=== PATIENT | female | born 1940 | race Caucasian/White ===

== ENCOUNTER 2016-09-05 10:29 | Outpatient (CLI) | payer MEDICARE, OTHER ==
--- NOTE | 2016-09-05 11:30 | XRAY Report ---
LEFT HIP AND PELVIS: 09/05/2016 CLINICAL INDICATION: Pain. FINDINGS: Frontal view of the hips and pelvis and frogleg lateral view of the left hip demonstrate m ild osteoarthritis. There is no evidence of acute fracture. No radiopaque foreign body is seen in the soft tissues. IMPRESSION: MILD OSTEOARTHRITIS. JOB #: [id number] EXT JOB #:[id number]
== END 2016-09-05 10:30 | disposition home or self-care (01) ==
LOC: DI 10:29
PROVIDERS: ATTEND Internal Medicine
DX: M16.12 Unilateral primary osteoarthritis, left hip (principal)

== ENCOUNTER 2016-09-16 16:14 | Outpatient (CLI) | payer MEDICARE, OTHER ==
--- NOTE | 2016-09-16 16:57 | XRAY Preliminary Report ---
Exam: XR Pelvis 1 View IMPRESSION: Normal pelvis radiography. [facility] The call report notification system was initiated by Dr. Trell Gross at 16:47 hrs on 09/16/16. The above findings were discussed with provider Dr. Nahid Lemus by Dr. Trell Gross at 16:55 hrs on . SITE ID: [id number]
--- NOTE | 2016-09-16 17:33 | XRAY Report ---
EXAM: PELVIS RADIOGRAPHY EXAM DATE: 09/16/2016 04:33 PM. CLINICAL HISTORY: Coccyx pain. COMPARISON: None. TECHNIQUE: 1 view. FINDINGS: Bones: Normal. No fracture or bone lesion. Joints: The visualized hip, pubis symphysis, and sacroiliac joints are preserved. No subluxation. Soft Tissues: Normal. No soft tissue swelling. IMPRESSION: Normal pelvis radiography. [facility] The call report notification system was initiated by Dr. Trell Gross at 16:47 hrs on 09/16/16. The above findings were discussed with providerDr. Nahid Lemus by Dr. Trell Gross at 16:55 hrs on 08/23 09/07. Referring Provider Line: [phone] SITE ID: [id number]
== END 2016-09-16 16:15 | disposition home or self-care (01) ==
LOC: DI 16:14
PROVIDERS: ATTEND Internal Medicine
DX: M53.3 Sacrococcygeal disorders, not elsewhere classified (principal)
CPT/HCPCS: 72170

== ENCOUNTER 2016-09-26 09:26 | Outpatient (CLI) | payer MEDICARE, OTHER ==
--- NOTE | 2016-09-26 16:08 | MRI Report ---
MR LUMBAR SPINE WITHOUT CONTRAST CLINICAL HISTORY: 75-year-old female with left-sided sciatica. TECHNIQUE: 1. Sagittal STIR, T1 and T2. 2. Axial T1 and T2. COMPARISON: None. FINDINGS: Radiographs (12/06/2013 have been reviewed). This patient has 6 [id number]-[id number], lumbar-type vertebra e. The last fully articulated level has been labeled L6. There is at least mild accentuation of the normal lumbar lordosis. There is minor retrolisthesis of L 4 on L5. Alignment is otherwise unremarkable. There is abnormal, T1 hypointense and STIR hyperintense marrow signal in the sacral ala at S1 and S2 bilaterally, suggesting probable insufficiency fractures. In addition, there appears to be a horizont al, side bar fracture (as evidenced by marrow edema) through upper S2 vertebral body. There are numer ous T1/T2 hyperintense foci, scattered throughout the vertebral bodies, pedicles and posterior elemen ts in the lumbar spine, consistent with inhomogeneous fatty marrow replacement and/or multiple intrao sseous hemangiomata. The marrow signal intensity in the lumbar spine is otherwise unremarkable. The conus terminates in an appropriate fashion above the L1-L2 disk level. There is no abnormal thick ening or lipomatous change of the filum. Axial images: L2-L3: No disk herniation. No spinal stenosis. Mild right foraminal narrowing. L3-L4: Minimal intraforaminal disk displacement bilaterally. No spinal stenosis. Minimal foraminal na rrowing. L4-L5: Circumferential disk bulge with associated, intraforaminal disk displacement bilaterally. A sm all fissure is identified in the annulus posterolaterally on the right without associated protrusion or extrusion. Degenerative facet arthrosis with minimal bony hypertrophy. Moderate redundancy of liga menta flava. Circumferential mass effect on the thecal sac. There is moderate right subarticular zone stenosis. No impingement of traversing right L5 nerve root is demonstrated. No significant central z one or left subarticular zone narrowing. Minimal foraminal narrowing. L5-L6: Minimal disk bulge. Minor intraforaminal protrusion on the left. A fissure is identified in th e annulus posterolaterally on the right without associated protrusion or extrusion. Degenerative face t arthrosis with mild bony hypertrophy. Mild to moderate redundancy of ligamenta flava. No significan t central or subarticular zone spinal stenosis. Mild foraminal narrowing. L6-S1: No disk herniation. Degenerative facet arthrosis with mild to moderate bony hypertrophy. No sp inal canal or foraminal stenosis. There is fairly advanced fatty atrophy in the posterior paraspinal musculature. IMPRESSION: 1. Marrow edema in the S1 and S2 sacral ala and in upper S2 vertebral body as described. These findin gs are strongly suggestive of sacral insufficiency fractures. This certainly would represent a cause for sacral pain. 2. Of note, this patient has 6 osl-[id number]-[id number], lumbar-type vertebrae. 3. Degenerative disk and facet changes are seen in the lumbar spine as documented above. No significa nt-appearing spinal canal or foraminal stenosis. No evidence of neural impingement. Comment: No potential etiology for left-sided sciatica has been demonstrated. Referring Provider Line: [phone] SITE ID: [id number]
== END 2016-09-26 09:27 | disposition home or self-care (01) ==
LOC: DI 09:26
PROVIDERS: ATTEND Internal Medicine
DX: M51.26 Other intervertebral disc displacement, lumbar region (principal); M51.36 Other intervertebral disc degeneration, lumbar region; M47.896 Other spondylosis, lumbar region
CPT/HCPCS: 72148

== ENCOUNTER 2017-02-27 14:48 | Outpatient (CLI) | payer MEDICARE, OTHER ==
[2017-02-27 13:52] LABS: BASOPHILS % (AUTO) 0.6 %; EOSINOPHILS # (AUTO) 0.1 10^3/uL (0.0-0.7); EOSINOPHILS % (AUTO) 3.1 %; HCT - HEMATOCRIT 35.1 % (37.0-47.0); HGB - HEMOGLOBIN 11.7 g/dL (12.0-16.0); MEAN CORPUSCULAR HEMOGLOBIN 29.3 pg (27.0-31.0); MEAN CORPUSCULAR HGB CONC 33.2 g/dL (32.0-36.0); MEAN CORPUSCULAR VOLUME 88.1 fL (81.0-99.0); MEAN PLATELET VOLUME 8.6 fL (7.9-10.8); MONOCYTES # (AUTO) 0.5 10^3/uL (0.0-1.0); MONOCYTES % (AUTO) 13.3 %; NEUTROPHILS # (AUTO) 2.3 10^3/uL (1.5-6.6); RED BLOOD COUNT 3.99 10^6/uL (4.20-5.40); RED CELL DISTRIBUTION WIDTH 14.1 % (12.0-15.0)
[2017-02-27 14:07] LABS: ALBUMIN/GLOBULIN RATIO 1.8 (1.0-2.2); BILIRUBIN,TOTAL 0.4 mg/dL (0.2-1.0); BUN - BLOOD UREA NITROGEN 16 mg/dL (6-20); CALCIUM 9.2 mg/dL (8.5-10.3); CARBON DIOXIDE - CO2 27 mmol/L (21-32); CHLORIDE 104 mmol/L (101-111); CHOL/HDL RATIO 2.5 (<4.4); CHOLESTEROL 252 mg/dL; CREATININE 0.9 mg/dL (0.4-1.0); GFR - MDRD 61 (>89); GLUCOSE 91 mg/dL (70-100); HDL CHOLESTEROL 101 mg/dL; LDL/HDL RATIO 1.4 (<4.4); POTASSIUM 3.8 mmol/L (3.5-5.0); SODIUM 138 mmol/L (135-145); TOTAL PROTEIN 6.7 g/dL (6.7-8.2); TRIGLYCERIDES 55 mg/dL; VLDL CHOLESTEROL 11 mg/dL
[2017-03-01 03:03] LABS: TEST RESULT REPORT
== END 2017-02-27 14:49 | disposition home or self-care (01) ==
LOC: LAB.N 14:48
PROVIDERS: ATTEND Internal Medicine
DX: G62.9 Polyneuropathy, unspecified (principal); E21.3 Hyperparathyroidism, unspecified; C18.9 Malignant neoplasm of colon, unspecified; G40.909 Epilepsy, unspecified, not intractable, without status epilepticus; Z79.899 Other long term (current) drug therapy
CPT/HCPCS: 36415; 80053; 80061; 80175; 80184; 81599; 85025

== ENCOUNTER 2017-03-20 16:25 | Outpatient (CLI) | payer MEDICARE, OTHER ==
--- NOTE | 2017-03-25 09:29 | XRAY Report ---
DATE OF SERVICE: 03/20/2017 SACRUM AND COCCYX: 03/20/2017 CLINICAL INDICATION: Left-sided pain. FINDINGS: AP, oblique, lateral views of the sacrum and coccyx demonstrate no evidence of acute fract ure. The insufficiency fractures seen on MRI of 09/26/2016 are not well appreciated on plain film. No radiopa que foreign body is seen in the soft tissues. IMPRESSION: No evidence of acute fracture. TD: 03/21/2017 19:05
--- NOTE | 2017-03-25 09:49 | XRAY Report ---
DATE OF SERVICE: 03/20/2017 SACROILIAC JOINTS: 03/20/2017 CLINICAL INDICATION: Left-sided pain. FINDINGS: Frontal and bilateral oblique views of the sacroiliac joints demonstrate no evidence of er osion or effusion. The joint spaces appear unremarkable. No radiopaque foreign body is seen in the soft tiss ues. IMPRESSION: Normal sacroiliac joints. TD: 03/21/2017 19:06
== END 2017-03-20 16:26 | disposition home or self-care (01) ==
LOC: DI 16:25
PROVIDERS: ATTEND Physician Assistant Medical
DX: M53.3 Sacrococcygeal disorders, not elsewhere classified (principal)
CPT/HCPCS: 72202; 72220

== ENCOUNTER 2017-03-29 07:35 | Emergency (ER) | payer MEDICARE, OTHER ==
--- NOTE | 2017-03-29 09:14 | ED Physician Documentation ---
PD HPI LOWER EXT INJURY - Stated complaint Stated Complaint: GLF/LT SIDE PX - Chief complaint Chief Complaint: Ext Problem - History obtained from History obtained from: Patient - History of Present Illness PD HPI LOW EXT INJURY LOCATION: Left, Hip, Foot Type of injury: Fall Where injury occurred: Home Timing - onset: Enter time (1800), Last night Timing - duration: Hours Timing - details: Abrupt onset, Still present Improved by: Rest, Immobilization Worsened by: Moving, Palpating Associated symptoms: No: Weakness, Numbness, Tingling, Swelling Contributing factors: No: Anticoagulated Similar symptoms before: Diagnosis (sacral fracture) Recently seen: Not recently seen - Additional information Additional information: 76-year-old female with history of peripheral neuropathy and seizure disorder wears braces to her lower extremities and has a left ankle and foot that does not work well. Yesterday evening at 6:00 the patient fell in her home when she was going to get out of the door. She was using her walker she had her braces on and despite this she fell and she has an injury to her left low back and to her left lateral foot. Review of Systems Constitutional: denies: Fever Eyes: denies: Decreased vision Ears: denies: Ear pain Nose: denies: Congestion Throat: denies: Sore throat Cardiac: denies: Chest pain / pressure, Palpitations Respiratory: denies: Dyspnea, Cough GI: denies: Abdominal Pain, Nausea, Vomiting, Constipation, Diarrhea : denies: Dysuria Skin: denies: Rash Musculoskeletal: reports: Back pain, Extremity pain, Pain with weight bearing. 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 - Present Medications Home Medications: Ambulatory Orders Medication Instructions Recorded Confirmed Ca Citrate/Mgox/Vit D3/B6/Min 500 each PO BID 05/04/13 07/14/15 [Calcium Citrate Plus Tablet] Cholecalciferol (Vitamin D3) 3,000 unit PO TID 05/04/13 07/14/15 [Vitamin D] Docusate Sodium 250 mg PO DAILY 05/04/13 07/14/15 PHENobarbital [Phenobarb] 32 mg PO TID 05/04/13 07/14/15 Lamotrigine [Lamotrigine ER] 150 mg PO BID 06/16/14 07/14/15 - Allergies Allergies/Adverse Reactions: Allergies Allergy/AdvReac Type Severity Reaction Status Date / Time No Known Drug Allergies Allergy Verified 03/29/17 07:41 - Social History Does the pt smoke?: No Smoking Status: Never smoker Does the pt drink ETOH?: No Does the pt have substance abuse?: No - Immunizations Immunizations are current?: Yes - POLST Patient has POLST: No PD ED PE NORMAL - Vitals Vital signs reviewed: Yes (normal ) - General General: Alert and oriented X 3, No acute distress, Well developed/nourished - HEENT HEENT: Atraumatic, PERRL - Respiratory Respiratory: No respiratory distress - Back Back: No CVA TTP, Other (There is specific tenderness to the lower back on the left side over the SI joint. There is no tenderness over the left trochanter. ) - Derm Derm: Normal color, Warm and dry, No rash - Extremities Extremities: No deformity, No edema, Other (There is specific pain over the proximal 5th metatarsal on the left. There is no deformitiy or crepitance. distal n/v is intact. 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, No motor deficit, No sensory deficit, Normal speech Eye Opening: Spontaneous Motor: Obeys Commands Verbal: Oriented GCS Score: 15 - Psych Psych: Normal mood, Normal affect Results - Vitals Vitals: Vital Signs - 24 hr 03/29/17 07:38 Temperature 36 C L Heart Rate 84 Respiratory 18 Rate Blood Pressure 129/77 O2 Saturation 94 Oxygen O2 Source Room air - Labs Labs: Laboratory Tests 03/29/17 09:54 Urine Color YELLOW Urine Clarity CLEAR Urine pH 7.5 Ur Specific [place] 1.015 Urine Protein NEGATIVE Urine Glucose (UA) NEGATIVE Urine Ketones NEGATIVE Urine Occult Blood NEGATIVE Urine Nitrite NEGATIVE Urine Bilirubin NEGATIVE Urine Urobilinogen 0.2 (NORMAL) Ur Leukocyte Esterase NEGATIVE Ur Microscopic Review NOT INDICATED Urine Culture Comments NOT INDICATED - Rads (name of study) LS-spine Radiology: Prelim report reviewed (Impression: 1. No acute osseous abnormality. 2. Multi-level lumbar degeneration.), EMP read indepedently, See rad report Left foot Radiology: Prelim report reviewed (Impression: 1. No acute osseous abnormality. ), EMP read indepedently, See rad report PD MEDICAL DECISION MAKING - ED course Complexity details: reviewed old records, reviewed results, re-evaluated patient , considered differential, d/w patient, d/w family ED course: 76-year-old female with a fall at home with an injury to her left lateral foot and her low back does not have evidence of fracture on x-ray. She is comfortable going home. Departure - Departure Disposition: 01 Home, Self Care Clinical Impression: Lumbar contusion Qualifiers: Encounter type: initial encounter Qualified Code(s): S30.0XXA - Contusion of lower back and pelvis, initial encounter Sprain of left foot Qualifiers: Encounter type: initial encounter Qualified Code(s): S93.602A - Unspecified sprain of left foot, initial encounter Condition: Stable Instructions: ED Contusion Back, ED Sprain Foot Follow-Up: Nahid Lemus MD [Primary Care Provider] -
--- NOTE | 2017-03-29 10:16 | XRAY Report ---
EXAM: LEFT FOOT RADIOGRAPHY EXAM DATE: 03/29/2017 09:49 AM. CLINICAL HISTORY: Twist, proximal 5th pain. Left foot pain for one day after fall. COMPARISON: None. TECHNIQUE: 3 views. FINDINGS: Bones: No fractures or bone lesions. Mild DJD at the small joints of the foot. Bones appear osteopeni c. Joints: Unremarkable. Soft Tissues: Unremarkable. IMPRESSION: 1. No acute osseous abnormality. [facility] Referring Provider Line: [phone] SITE ID: [id number]
--- NOTE | 2017-03-29 10:19 | XRAY Preliminary Report ---
Exam: XR LUMBAR SPINE 2 VIEW IMPRESSION: 1. No acute osseous abnormality. 2. Multilevel lumbar degeneration. [facility] SITE ID: [id number]
--- NOTE | 2017-03-29 10:19 | XRAY Report ---
EXAM: LUMBOSACRAL SPINE RADIOGRAPHY EXAM DATE: 03/29/2017 09:50 AM. CLINICAL HISTORY: Fall left sacroilliac pain . COMPARISONS: Lumbar spine MRI 09/26/2016, SI joint radiograph series 03/20/2017. TECHNIQUE: 3 views. FINDINGS: Alignment: Mild generalized rightward lumbar convexity centered at L3-L4. Sagittal alignment is lorena l. Bones: Last complete disk space designated L5-S1. No fractures or bone lesions. Bones appear osteopen ic. Disks: There is evidence of mild multilevel lumbar disc and facet degeneration, most pronounced at th e mid to lower lumbar levels. Facets: As above. Sacroiliac Joints: Unremarkable. Soft Tissues: Paraspinous soft tissues are unremarkable.Atherosclerotic arterial calcifications are p resent. IMPRESSION: 1. No acute osseous abnormality. 2. Multilevel lumbar degeneration. [facility] Referring Provider Line: [phone] SITE ID: [id number]
[2017-03-29 10:28] LABS: BILIRUBIN,URINE NEGATIVE (NEGATIVE); CLARITY,URINE CLEAR (CLEAR); GLUCOSE, URINE (UA) NEGATIVE (NEGATIVE); KETONES,URINE (UA) NEGATIVE (NEGATIVE); LEUKOCYTE ESTERASE, URINE NEGATIVE (NEGATIVE); NITRITE,URINE NEGATIVE (NEGATIVE); OCCULT BLOOD,URINE NEGATIVE (NEGATIVE); PH,URINE 7.5 PH (5.0-7.5); PROTEIN,URINE NEGATIVE (NEGATIVE); UROBILINOGEN,URINE 0.2 (NORMAL) E.U./dL (NORMAL)
[2017-03-29 11:15] VITALS: BP 131/73
== END 2017-03-29 11:19 | disposition home or self-care (01) ==
LOC: ED 07:35
DX: S30.0XXA Contusion of lower back and pelvis, initial encounter (principal); S93.602A Unspecified sprain of left foot, initial encounter; W18.30XA Fall on same level, unspecified, initial encounter; Y92.009 Unspecified place in unspecified non-institutional (private) residence as the place of occurrence of the external cause; G62.9 Polyneuropathy, unspecified
CPT/HCPCS: 72100; 81001; 81003; 87086; 99282; 99283

== ENCOUNTER 2017-04-01 10:49 | Outpatient (CLI) | payer MEDICARE, OTHER ==
--- NOTE | 2017-04-02 15:48 | Mammography Report ---
DATE OF SERVICE: 04/01/2017 DIGITAL SCREENING MAMMOGRAM: 04/01/2017 CLINICAL INDICATION: A 76-year-old with history of benign biopsy, for screening. COMPARISON: 03/2015, 02/2014, 02/2013, 01/2012, 01/2011, 12/2009. TECHNIQUE: Routine CC and MLO projections were obtained of the breasts. Bilateral laterally exaggerated craniocaudal views. FINDINGS: Parenchymal tissue within both breasts is heterogeneously dense, which may lower the sensitivity of mammography; however, there are no dominant masses, suspicious microcalcifications, or secondary signs of malignancy. In comparison to the previous studies, there are no significant changes. ASSESSMENT: NO MAMMOGRAPHIC EVIDENCE OF MALIGNANCY. NO SIGNIFICANT INTERVAL CHANGES. RECOMMENDATION: Screening mammography is recommended annually. BIRADS category 1 - negative. STANDARD QUALIFYING STATEMENTS: 1. This examination was reviewed with the aid of Computed-Aided Detection (CAD). 2. A negative or benign imaging report should not delay biopsy if clinically suspicious findings are present. Consider surgical consultation if warranted. More than 5% of cancers are not identified by imaging. 3. Dense breasts may obscure an underlying neoplasm. TD: 04/02/2017 16:47
== END 2017-04-01 10:50 | disposition home or self-care (01) ==
LOC: DI.N 10:49
PROVIDERS: ATTEND Internal Medicine
DX: Z12.31 Encounter for screening mammogram for malignant neoplasm of breast (principal)
CPT/HCPCS: 77067

== ENCOUNTER 2017-04-08 15:32 | Outpatient (CLI) | payer MEDICARE, OTHER ==
--- NOTE | 2017-04-09 12:27 | XRAY Report ---
DATE OF SERVICE: 04/08/2017 TWO-VIEW LEFT LOWER LE04/08/2017 CLINICAL INDICATION: Leg pain. FINDINGS: Frontal and lateral views of the left lower leg demonstrate no evidence of fracture or dislocation. No radiopaque foreign body is seen in the soft tissues. IMPRESSION: Normal left lower leg. TD: 04/09/2017 13:22
== END 2017-04-08 15:33 | disposition home or self-care (01) ==
LOC: DI 15:32
PROVIDERS: ATTEND Internal Medicine
DX: M79.605 Pain in left leg (principal)

== ENCOUNTER 2017-04-29 09:25 | Outpatient (CLI) | payer MEDICARE, OTHER ==
--- NOTE | 2017-04-29 14:02 | DEXA Report ---
DEXA SCAN: 04/29/2017 CLINICAL INDICATION: Osteoporosis. TECHNIQUE: Dual energy x-ray absorptiometry (DXA) was performed on a [employer] system. Regions measured are the AP spine, femoral neck, and, if needed, forearm. COMPARISON: None. In accordance with the International Society for Clinical Densitometry (ISCD) guidelines, data from previous exams may be reanalyzed using current recommendations and techniques. This is done to allow a more accurate basis for comparison with the current study. FINDINGS: The data for the lumbar spine is as follows: REGION BMD (g/cm/cm) T-SCORE Z-SCORE L1 0.828 -2.5 -0.7 L2 0.838 -3.0 -1.2 L3 0.868 -2.8 -0.9 L4 0.949 -2.1 -0.3 TOTAL 0.876 -2.5 -0.7 NOTE: All evaluable vertebrae are used for classification. The data for the hip is as follows: REGION BMD (g/cm/cm) T-SCORE Z-SCORE Neck 0.756 -2.0 -0.1 TOTAL 0.765 -1.9 -0.2 NOTE: The femoral neck or total proximal femur, whichever is lowest, is used for classification. FOREARM DATA: REGION BMD (g/cm/cm) T-SCORE Z-SCORE 1/3 0.655 -2.5 -0.3 NOTE: The 33% radius of the non-dominant forearm~is used for classification. IMPRESSION 1. THE WHO CLASSIFICATION BASED ON THE INTERNATIONAL REFERENCE STANDARD IS OSTEOPOROSIS. THE FRACTURE RISK IS HIGH. 2. LEFT FOREARM EVALUATION PERFORMED DUE TO HISTORY OF HYPERPARATHYROIDISM PREVIOUSLY DOCUMENTED. RECOMMENDATION: Patients with diagnosis of osteoporosis or osteopenia should have regular bone mineral density assessment. For those eligible for Medicare, routine testing is allowed once every 2 years. Testing frequency can be increased for patients who have rapidly progressing disease or for those who are receiving medical therapy to restore bone mass. COMMENT: World Health Organization (WHO) definitions for osteoporosis and osteopenia: NORMAL BMD: T-score at 1.0 or higher, fracture risk is low. OSTEOPENIA BMD: T-score between 1.0 and -2.5, fracture risk is increased. OSTEOPOROSIS BMD: T-score at 2.5 or lower, fracture risk high. National Osteoporosis Foundation recommends: 1. Obtain adequate dietary calcium (at least 1200 mg per day) and vitamin D (400 -800 international units per day). 2. Participate, as appropriate, in regular weightbearing and muscle- strengthening exercise. 3. Avoid tobacco use and reduce alcohol and caffeine intake. 4. For more detailed information see the website at www.NOF.org. TD: 04/29/2017 13:59 MTDD
== END 2017-04-29 09:26 | disposition home or self-care (01) ==
LOC: DI 09:25
PROVIDERS: ATTEND Internal Medicine
DX: M81.0 Age-related osteoporosis without current pathological fracture (principal); Z86.39 Personal history of other endocrine, nutritional and metabolic disease
CPT/HCPCS: 77080; 77081

== ENCOUNTER 2017-06-10 11:27 | Outpatient (CLI) | payer MEDICARE, OTHER ==
[2017-06-10 12:10] LABS: ALBUMIN 4.6 g/dL (3.2-5.5); CALCIUM 9.7 mg/dL (8.5-10.3); CREATININE 0.8 mg/dL (0.4-1.0); PHOSPHORUS 3.5 mg/dL (2.5-4.6)
== END 2017-06-10 11:28 | disposition home or self-care (01) ==
LOC: LAB 11:27
PROVIDERS: ATTEND Internal Medicine Endocrinology, Diabetes & Metabolism
DX: R94.4 Abnormal results of kidney function studies (principal)
CPT/HCPCS: 36415; 80069

== ENCOUNTER 2017-07-04 14:30 | Outpatient (CLI) | payer MEDICARE, OTHER ==
--- NOTE | 2017-07-04 16:52 | MRI Report ---
EXAM: MRI LUMBAR SPINE WITHOUT CONTRAST EXAM DATE: 07/04/2017 03:46 PM. CLINICAL HISTORY: Left L4 and L5 radiculopathy. Chronic low back pain. Increased left hip and leg cee n that has improved in the last 2 weeks. COMPARISON: Radiograph 01/27/2018, MRI 09/26/2016. TECHNIQUE: Multiplanar, multisequence T1-weighted and fluid-sensitive sequences of the lumbar spine f rom T12 to S1 without contrast. Other: None. FINDINGS: Spinal Cord: The conus terminates at T11-T12. The conus medullaris and cauda equina are unremarkable. Alignment: No scoliosis or spondylolisthesis. Bone Marrow: Five olf-lop-jvnqajk lumbar vertebral bodies are assumed. No fractures. A benign hemangi gurpreet is within L2. A benign lipoma is within L3. Disk Levels/Facets: T11-t12: The disk is desiccated. T12-l1: The disk is desiccated. L1-L2: The disk is desiccated. L2-L3: Small foraminal area protrusions result in minimal bilateral foraminal narrowing. L3-L4: The disk is desiccated. A broad-based posterior disk protrusion, severe ligamentum flavum hype rtrophy, severe facet hypertrophy result in moderate spinal canal and minimal bilateral foraminal minna rowing. L4-L5: The disk is desiccated. Severe ligamentum flavum hypertrophy and moderate facet hypertrophy ca use mild spinal canal and minimal bilateral foraminal narrowing as before. L5-S1: Unremarkable. Musculature: Normal. No edema or fatty atrophy. Other: The partially visualized retroperitoneum is unremarkable. IMPRESSION: 1. Benign hemangioma within L2. 2. Benign lipoma within L3. 3. Moderate spinal canal narrowing at L3-L4 due to disk and posterior element degenerative changes. 4. Mild spinal canal narrowing at L4-L5 due to disk and posterior element degenerative changes. Comment: The following findings are so common in adults without low back pain that while we report th eir presence, they must be interpreted with caution and in the context of the clinical situation. (Re betina Acosta et al, Spine 2001) Prevalence of findings in patients without low back pain: Disk degeneration (any evidence): 92% Disk desiccation/T2 signal loss: 83% Disk height loss: 56% Disk bulge: 64% Disk protrusion: 32% Annular tear/high intensity zone: 38% [facility] Referring Provider Line: [phone] SITE ID: [id number]
== END 2017-07-04 14:31 | disposition home or self-care (01) ==
LOC: DI 14:30
PROVIDERS: ATTEND Orthopaedic Surgery
DX: M51.36 Other intervertebral disc degeneration, lumbar region (principal); M51.34 Other intervertebral disc degeneration, thoracic region; M51.26 Other intervertebral disc displacement, lumbar region; M47.896 Other spondylosis, lumbar region; D17.1 Benign lipomatous neoplasm of skin and subcutaneous tissue of trunk
CPT/HCPCS: 72148

== ENCOUNTER 2017-07-30 08:00 | Outpatient (CLI) | payer MEDICARE, OTHER ==
[2017-07-30 13:04] LABS: CALCIUM 9.1 mg/dL (8.5-10.3); CREATININE 0.9 mg/dL (0.4-1.0)
== END 2017-07-30 08:01 | disposition home or self-care (01) ==
LOC: LAB.N 08:00
PROVIDERS: ATTEND Internal Medicine
DX: M81.0 Age-related osteoporosis without current pathological fracture (principal)
CPT/HCPCS: 36415; 80048

== ENCOUNTER 2018-01-17 03:59 | Outpatient (CLI) | payer MEDICARE, OTHER | END 2018-01-17 04:00 | disposition critical access hospital (66) | LOC: EMS 03:59 | PROVIDERS: ATTEND Surgery | DX: R07.81 Pleurodynia (principal); W19.XXXA Unspecified fall, initial encounter; Y92.009 Unspecified place in unspecified non-institutional (private) residence as the place of occurrence of the external cause | CPT/HCPCS: A0425; A0429 ==

== ENCOUNTER 2018-01-17 04:19 | Emergency (ER) | payer MEDICARE, OTHER ==
[2018-01-17] MEDS ORDERED: MORPHINE 10 MG/ML VIAL IVP STA (04:29)
[2018-01-17] MEDS ORDERED: SODIUM CHLORIDE 0.9% 1,000 ML IV ONE (04:29)
--- NOTE | 2018-01-17 04:31 | ED Physician Documentation ---
PD HPI TRUNK INJURY - Stated complaint Stated Complaint: GLF/RIBCAGE PAIN - Chief complaint Chief Complaint: Trauma Ch/Bk - History obtained from History obtained from: Patient, EMS - History of Present Illness Location: Posterior chest, Right chest, Right abdomen Type of injury: Fall (she says she was putting dishes away and turned, lost balance, and fell striking right posterolateral chest on counter. Pain there but was able to maneuver adn get to bed. Awoke at 2 am with worse pain. Denies injury to head, neck.) Timing - onset: Last night (about 7 pm) Timing - duration: Hours Timing - details: Abrupt onset, Still present Quality: Pain, Sharp Improved by: Rest Worsened by: Moving, Palpating Associated symtptoms: No: Weakness, Numbness, Discoloration Contributing factors: No: Anticoagulated Similar symptoms before: Has not had sx before Recently seen: Not recently seen Review of Systems Constitutional: denies: Fever, Chills Nose: denies: Rhinorrhea / runny nose, Congestion Throat: denies: Sore throat Cardiac: reports: Chest pain / pressure. denies: Palpitations, Pedal edema, Calf pain Respiratory: reports: Dyspnea. denies: Cough, Wheezing GI: reports: Abdominal Pain (right upper just under the ribs area.). denies: Nausea, Vomiting Skin: denies: Abrasion (s), Laceration (s) Musculoskeletal: denies: Back pain Neurologic: reports: Generalized weakness. denies: Focal weakness, Numbness, Altered mental status, Headache, Head injury PD PAST MEDICAL HISTORY - Past Medical History Cardiovascular: None Respiratory: None Musculoskeletal: Osteoarthritis, Osteoporosis - Past Surgical History Past Surgical History: Yes /[employer]: Hysterectomy - Present Medications Home Medications: Ambulatory Orders Medication Instructions Recorded Confirmed Ca Citrate/Mgox/Vit D3/B6/Min 500 each PO BID 05/04/13 08/01/17 [Calcium Citrate Plus Tablet] Docusate Sodium 250 mg PO DAILY 05/04/13 08/01/17 PHENobarbital [Phenobarb] 30 mg PO DAILY 05/04/13 08/01/17 Lamotrigine [Lamotrigine ER] 300 mg PO QPM 06/16/14 08/01/17 Cholecalciferol (Vitamin D3) 2,000 mg PO QDLUNCH 08/01/17 08/01/17 [Vitamin D3] PHENobarbital [Phenobarbital] 30 mg PO QPM 08/01/17 08/01/17 Vitamin D3/Folic Acid [Cifrazol 1,000 mg PO BID 08/01/17 08/01/17 3,775 Unit-1 mg Cap] lamoTRIgine [Lamictal] 150 mg PO DAILY 08/01/17 08/01/17 lamoTRIgine [Lamictal] 150 mg PO QDLUNCH 08/01/17 08/01/17 Docusate Sodium 100 mg PO DAILY #15 capsule 01/17/18 HYDROcod/ACETAM 5/325 [Rhodes 5/325] 1 tab PO TID PRN #20 tablet 01/17/18 Naproxen 375 mg PO BID #20 tablet 01/17/18 - Allergies Allergies/Adverse Reactions: Allergies Allergy/AdvReac Type Severity Reaction Status Date / Time No Known Drug Allergies Allergy Verified 01/17/18 04:27 - Social History Does the pt smoke?: No Smoking Status: Never smoker Does the pt drink ETOH?: No Does the pt have substance abuse?: No - Immunizations Immunizations are current?: Yes - POLST Patient has POLST: No PD ED PE NORMAL - Vitals Vital signs reviewed: Yes - General General: Alert and oriented X 3, Well developed/nourished, Other (in pain with movement of trunk, seems very uncomfortable. ) - HEENT HEENT: Atraumatic, PERRL, Dentition benign - Neck Neck: Supple, no meningeal sign, No adenopathy - Cardiac Cardiac: RRR, No murmur - Respiratory Respiratory: Clear bilaterally - Abdomen Abdomen: Normal bowel sounds, Soft, Non distended, Other (right upper abd/ lower ribs in anterolateral area with tenderness of ribs as well. No crepitance. ) - Back Back: No spinal TTP - Derm Derm: Normal color, Warm and dry - Extremities Extremities: No deformity, No tenderness to palpate, Normal ROM s pain, No edema - Neuro Neuro: Alert and oriented X 3, No motor deficit, Normal speech Results - Vitals Vitals: Vital Signs - 24 hr 01/17/18 01/17/18 01/17/18 04:21 04:50 05:04 Temperature 36.4 C L Heart Rate 78 78 72 Respiratory 16 17 16 Rate Blood Pressure 141/67 H O2 Saturation 97 99 98 10/27/18 10/27/18 05:40 06:04 Temperature Heart Rate 80 79 Respiratory 17 16 Rate Blood Pressure 150/73 H 158/76 H O2 Saturation 97 98 Oxygen O2 Source Room air - Labs Labs: Laboratory Tests 01/17/18 01/17/18 04:45 04:45 WBC 4.1 L RBC 4.30 Hgb 12.7 Hct 37.9 MCV 88.1 MCH 29.6 MCHC 33.6 RDW 13.9 Plt Count 217 MPV 7.8 L Neut # (Auto) 2.0 Lymph # (Auto) 1.3 L [place] # (Auto) 0.5 Eos # (Auto) 0.2 Baso # (Auto) 0.0 Absolute Nucleated RBC 0.00 Nucleated RBC % 0.1 Sodium 140 Potassium 4.1 Chloride 105 Carbon Dioxide 27 Anion Gap 8.0 BUN 23 H Creatinine 1.0 Estimated GFR (MDRD) 54 L Glucose 104 H Calcium 9.0 Total Bilirubin 0.2 AST 18 ALT 12 Alkaline Phosphatase 86 Total Protein 6.9 Albumin 4.0 Globulin 2.9 Albumin/Globulin Ratio 1.4 Lipase 29 - Rads (name of study) chest and abd CT Radiology: Prelim report reviewed, Final report received (no fractures nor organ injuries) PD MEDICAL DECISION MAKING - ED course Complexity details: reviewed results, re-evaluated patient (feeling better with just small dose morphine. Will add Toradol and Tylenol. ), considered differential, d/w patient Departure - Departure Disposition: 01 Home, Self Care Clinical Impression: Contusion of chest wall Qualifiers: Encounter type: initial encounter Laterality: right Qualified Code(s): S20.211A - Contusion of right front wall of thorax, initial encounter Fall from slip, trip, or stumble Qualifiers: Encounter type: initial encounter Qualified Code(s): W01.0XXA - Fall on same level from slipping, tripping and stumbling without subsequent striking against object, initial encounter Condition: Stable Record reviewed to determine appropriate education?: Yes Instructions: ED Contusion Chest Wall Follow-Up: Nahid Lemus MD [Primary Care Provider] - Prescriptions: Docusate Sodium 100 mg PO DAILY #15 capsule HYDROcod/ACETAM 5/325 [Rhodes 5/325] 1 tab PO TID PRN #20 tablet PRN Reason: Pain Naproxen 375 mg PO BID #20 tablet Comments: There are no signs of any broken bones, fractures, organ injury on your scans. You obviously are still sore from the injury but it would seem to be soft tissue bruising and should get better more easily. I would suggest some anti- inflammatories such as naproxen twice daily for the next week. Docusate stool softener daily to reduce chance of constipation. Add Tylenol or hydrocodone 3-4 times a day as needed for pains. Recheck if not improving over the next several days to week.
[2018-01-17 04:51] LABS: BASOPHILS % (AUTO) 0.6 %; EOSINOPHILS # (AUTO) 0.2 10^3/uL (0.0-0.7); EOSINOPHILS % (AUTO) 5.1 %; HGB - HEMOGLOBIN 12.7 g/dL (12.0-16.0); LYMPHOCYTES # (AUTO) 1.3 10^3/uL (1.5-3.5); LYMPHOCYTES % (AUTO) 30.8 %; MEAN CORPUSCULAR HEMOGLOBIN 29.6 pg (27.0-31.0); MEAN CORPUSCULAR HGB CONC 33.6 g/dL (32.0-36.0); MEAN CORPUSCULAR VOLUME 88.1 fL (81.0-99.0); MEAN PLATELET VOLUME 7.8 fL (7.9-10.8); MONOCYTES # (AUTO) 0.5 10^3/uL (0.0-1.0); MONOCYTES % (AUTO) 13.4 %; NEUTROPHILS % (AUTO) 50.1 %; PLT - PLATELET COUNT 217 10^3/uL (130-450); RED CELL DISTRIBUTION WIDTH 13.9 % (12.0-15.0); WHITE BLOOD COUNT 4.1 x10^3/uL (4.8-10.8)
[2018-01-17 05:04] LABS: ALBUMIN/GLOBULIN RATIO 1.4 (1.0-2.2); BILIRUBIN,TOTAL 0.2 mg/dL (0.2-1.0); TOTAL PROTEIN 6.9 g/dL (6.7-8.2)
[2018-01-17] MEDS ORDERED: IOPAMIDOL-300 100 ML VIAL ONE (05:08)
[2018-01-17] MEDS ORDERED: IOPAMIDOL-300 100 ML VIAL IVP ONE (05:27)
--- NOTE | 2018-01-17 05:54 | CT Report ---
Reason: fall with right lower chest/upper abd injury Procedure Date: 01/17/2018 Accession Number: [id number] / [id number] Procedure: CT - Chest W/ CPT Code: FULL RESULT: EXAM: CT CHEST EXAM DATE: 01/17/2018 05:38 AM. CLINICAL HISTORY: Fall with right lower chest/upper abd injury. COMPARISONS: None. TECHNIQUE: Routine helical CT imaging was performed through the chest. IV contrast: 100 mL of Isovue-300. Reconstructions: Coronal and sagittal. In accordance with CT protocol optimization, one or more of the following dose reduction techniques were utilized for this exam: automated exposure control, adjustment of mA and/or KV based on patient size, or use of iterative reconstructive technique. FINDINGS: Lungs/Pleura: Mild right basilar atelectasis. No effusion or pneumothorax. Mediastinum: Normal. No adenopathy or masses. The heart and great vessels are normal. Small hiatal hernia. Bones: Unremarkable. Visualized Abdomen: Please see separate CT. Other: None. IMPRESSION: Hiatal hernia. No evidence of acute traumatic injury. RADIA
--- NOTE | 2018-01-17 05:57 | CT Report ---
Reason: fall with right lower chest/upper abd injury Procedure Date: 01/17/2018 Accession Number: [id number] / [id number] Procedure: CT - Abdomen/Pelvis W/ CPT Code: FULL RESULT: EXAM: CT ABDOMEN AND PELVIS EXAM DATE: 01/17/2018 05:29 AM. CLINICAL HISTORY: Fall with right lower chest/upper abd injury. COMPARISONS: None. TECHNIQUE: Routine helical CT imaging was performed through the abdomen and pelvis. IV contrast: ISOVUE 300 100mL. Enteric contrast: No. Reconstructions: Coronal and sagittal. In accordance with CT protocol optimization, one or more of the following dose reduction techniques were utilized for this exam: automated exposure control, adjustment of mA and/or KV based on patient size, or use of iterative reconstructive technique. FINDINGS: Lung Bases: Please see separate CT. Liver: Hepatic cysts. No evidence of liver laceration or solid mass. Gallbladder/Bile Ducts: Unremarkable. Spleen: Normal. Splenule posterior to the spleen. Pancreas: Normal. Adrenal Glands: Normal. Kidneys: Normal. No masses or hydronephrosis. Peritoneal Cavity/Bowel: Normal. No free fluid, free air or adenopathy. No masses or acute inflammatory process. The appendix is well visualized and normal. Pelvic Organs: Normal. The bladder and visualized pelvic organs are within normal limits. Vasculature: No aneurysms or other significant abnormality. Bones: No significant abnormality. Other: None. IMPRESSION: Incidental hepatic cysts. No evidence of acute traumatic injury. RADIA
[2018-01-17] MEDS ORDERED: ACETAMINOPHEN 325 MG TABLET PO STA (06:28)
[2018-01-17] MEDS ORDERED: KETOROLAC 15 MG/ML VIAL IVP STA (06:28)
[2018-01-17 06:37] VITALS: BP 139/70
== END 2018-01-17 07:59 | disposition home or self-care (01) ==
LOC: EDUNIT# → ED 04:19
DX: S20.211A Contusion of right front wall of thorax, initial encounter (principal); W18.30XA Fall on same level, unspecified, initial encounter; W22.8XXA Striking against or struck by other objects, initial encounter; Y93.G1 Activity, food preparation and clean up; Y92.89 Other specified places as the place of occurrence of the external cause
CPT/HCPCS: 36415; 71260; 74177; 80053; 83690; 85025; 96361; 96374; 96375; 99284; A9270; Q9967

== ENCOUNTER 2018-03-04 08:54 | Outpatient (CLI) | payer MEDICARE, OTHER ==
[2018-03-04 13:28] LABS: BASOPHILS % (AUTO) 1.1 %; EOSINOPHILS # (AUTO) 0.2 10^3/uL (0.0-0.7); EOSINOPHILS % (AUTO) 4.5 %; HGB - HEMOGLOBIN 12.6 g/dL (12.0-16.0); LYMPHOCYTES % (AUTO) 24.8 %; MEAN CORPUSCULAR HEMOGLOBIN 29.6 pg (27.0-31.0); MEAN CORPUSCULAR HGB CONC 33.3 g/dL (32.0-36.0); MEAN PLATELET VOLUME 8.5 fL (7.9-10.8); MONOCYTES # (AUTO) 0.5 10^3/uL (0.0-1.0); MONOCYTES % (AUTO) 11.6 %; NEUTROPHILS # (AUTO) 2.3 10^3/uL (1.5-6.6); PLT - PLATELET COUNT 248 10^3/uL (130-450); RED BLOOD COUNT 4.25 10^6/uL (4.20-5.40); RED CELL DISTRIBUTION WIDTH 13.8 % (12.0-15.0)
[2018-03-04 13:34] LABS: ALBUMIN 4.3 g/dL (3.2-5.5); ALBUMIN/GLOBULIN RATIO 1.5 (1.0-2.2); BILIRUBIN,TOTAL 0.5 mg/dL (0.2-1.0); CALCIUM 8.9 mg/dL (8.5-10.3); CREATININE 0.8 mg/dL (0.4-1.0); TOTAL PROTEIN 7.1 g/dL (6.7-8.2)
== END 2018-03-04 23:59 | disposition home or self-care (01) ==
LOC: LAB.N 08:54
PROVIDERS: ATTEND Internal Medicine
DX: E21.3 Hyperparathyroidism, unspecified (principal); Z79.899 Other long term (current) drug therapy; C18.9 Malignant neoplasm of colon, unspecified; D70.9 Neutropenia, unspecified; R56.9 Unspecified convulsions
CPT/HCPCS: 36415; 80053; 80175; 81599; 84443; 85025

== ENCOUNTER 2018-06-09 15:03 | Outpatient (CLI) | payer MEDICARE, OTHER ==
--- NOTE | 2018-06-11 15:05 | DEXA Report ---
Reason: OSTEOPOROSIS Procedure Date: 06/09/2018 Accession Number: [id number] / [id number] Procedure: DEX - Dexa Forearm CPT Code: FULL RESULT: EXAM: Dexa Spine and/or Hip, Dexa Forearm DATE: 06/09/2018 4:13 PM CLINICAL HISTORY: OSTEOPOROSIS TECHNIQUE: Dual energy x-ray absorptiometry (DXA) was performed on a [email or web address] System. Regions measured are the AP Spine, femoral neck, and if needed forearm. COMPARISON: 04/29/2017 In accordance with the International Society for Clinical Densitometry (ISCD) guidelines, data from previous exams may be reanalyzed using current recommendations and techniques. This is done to allow a more accurate basis for comparison with the current study. FINDINGS: The data for the lumbar spine is as follows: BMD (g/cm/cm) T-SCORE Z-SCORE REGION L1 0.875 -2.1 -0.3 L2 0.900 -2.5 -0.7 L3 0.939 -2.2 -0.3 L4 1.055 -1.2 0.6 TOTAL 0.949 -1.9 -0.1 NOTE: All evaluable vertebrae are used for classification The data for the hip is as follows: BMD (g/cm/cm) T-SCORE Z-SCORE REGION Neck 0.798 -1.7 0.3 TOTAL 0.835 -1.4 0.4 NOTE: The femoral neck or total proximal femur, whichever is lowest, is used for classification. The data for the left forearm is as follows: BMD (g/cm/cm) T-SCORE Z-SCORE REGION 1/3 0.666 -2.4 -0.1 NOTE: The 33% radius of the nondominant forearm is used for classification. DXA RESULTS SUMMARY: Spine SCAN DATE AGE BMD CHANGE VS CHANGE VS PREVIOUS PREVIOUS % [birth year]09[birth year]2018 77.4 0.970 0.081* 9.1* 04/29/2017 74.3 0.889 * Denotes significant change at the 95% confidence level. Denotes dissimilar scan types or analysis methods. DXA RESULTS SUMMARY: Hip SCAN DATE AGE BMD CHANGE VS CHANGE VS PREVIOUS PREVIOUS % [birth year]09[birth year]2018 75.4 0.835 0.070* 9.2* 04/29/2017 74.3 0.765 * Denotes significant change at the 95% confidence level. Denotes dissimilar scan types or analysis methods. DXA RESULTS SUMMARY: Forearm SCAN DATE AGE BMD CHANGE VS CHANGE VS PREVIOUS PREVIOUS % [birth year]09[birth year]2018 75.4 0.666 0.011 1.7 04/29/2017 74.3 0.655 * Denotes significant change at the 95% confidence level. Denotes dissimilar scan types or analysis methods. IMPRESSION: THE WHO CLASSIFICATION BASED ON THE INTERNATIONAL REFERENCE STANDARD IS OSTEOPENIA. THE FRACTURE RISK IS INCREASED. RECOMMENDATION: Patients with diagnosis of osteoporosis or osteopenia should have regular bone mineral density assessment. For those eligible for Medicare, routine testing is allowed once every 2 years. Testing frequency can be increased for patients who have rapidly progressing disease or for those who are receiving medical therapy to restore bone mass. COMMENT: World Health Organization (WHO) definitions for osteoporosis and osteopenia: NORMAL BMD: T-score at -1.0 or higher, fracture risk is low OSTEOPENIA BMD: T-score between -1.0 and -2.5, fracture risk is increased. OSTEOPOROSIS BMD: T-score at -2.5 or lower, fracture risk is high. National Osteoporosis Foundation recommends: 1. Obtain adequate dietary calcium (at least 1200 mg per day) and vitamin D (400-800 international units per day). 2. Participate, as appropriate, in regular weightbearing and muscle-strengthening exercise. 3. Avoid tobacco use and reduce alcohol and caffeine intake. 4. For more detailed information see the website at www.NOF.org.
--- NOTE | 2018-06-11 15:05 | DEXA Report ---
Reason: OSTEOPOROSIS Procedure Date: 06/09/2018 Accession Number: [id number] / [id number] Procedure: DEX - Dexa Spine and/or Hip CPT Code: FULL RESULT: EXAM: Dexa Spine and/or Hip, Dexa Forearm DATE: 06/09/2018 4:13 PM CLINICAL HISTORY: OSTEOPOROSIS TECHNIQUE: Dual energy x-ray absorptiometry (DXA) was performed on a [employer] System. Regions measured are the AP Spine, femoral neck, and if needed forearm. COMPARISON: 04/29/2017 In accordance with the International Society for Clinical Densitometry (ISCD) guidelines, data from previous exams may be reanalyzed using current recommendations and techniques. This is done to allow a more accurate basis for comparison with the current study. FINDINGS: The data for the lumbar spine is as follows: BMD (g/cm/cm) T-SCORE Z-SCORE REGION L1 0.875 -2.1 -0.3 L2 0.900 -2.5 -0.7 L3 0.939 -2.2 -0.3 L4 1.055 -1.2 0.6 TOTAL 0.949 -1.9 -0.1 NOTE: All evaluable vertebrae are used for classification The data for the hip is as follows: BMD (g/cm/cm) T-SCORE Z-SCORE REGION Neck 0.798 -1.7 0.3 TOTAL 0.835 -1.4 0.4 NOTE: The femoral neck or total proximal femur, whichever is lowest, is used for classification. The data for the left forearm is as follows: BMD (g/cm/cm) T-SCORE Z-SCORE REGION 1/3 0.666 -2.4 -0.1 NOTE: The 33% radius of the nondominant forearm is used for classification. DXA RESULTS SUMMARY: Spine SCAN DATE AGE BMD CHANGE VS CHANGE VS PREVIOUS PREVIOUS % [birth year]09[birth year]2018 75.4 0.970 0.081* 9.1* 04/29/2017 74.3 0.889 * Denotes significant change at the 95% confidence level. Denotes dissimilar scan types or analysis methods. DXA RESULTS SUMMARY: Hip SCAN DATE AGE BMD CHANGE VS CHANGE VS PREVIOUS PREVIOUS % [birth year]09[birth year]2018 75.4 0.835 0.070* 9.2* 04/29/2017 74.3 0.765 * Denotes significant change at the 95% confidence level. Denotes dissimilar scan types or analysis methods. DXA RESULTS SUMMARY: Forearm SCAN DATE AGE BMD CHANGE VS CHANGE VS PREVIOUS PREVIOUS % [birth year]09/2018 75.4 0.666 0.011 1.7 04/29/2017 74.3 0.655 * Denotes significant change at the 95% confidence level. Denotes dissimilar scan types or analysis methods. IMPRESSION: THE WHO CLASSIFICATION BASED ON THE INTERNATIONAL REFERENCE STANDARD IS OSTEOPENIA. THE FRACTURE RISK IS INCREASED. RECOMMENDATION: Patients with diagnosis of osteoporosis or osteopenia should have regular bone mineral density assessment. For those eligible for Medicare, routine testing is allowed once every 2 years. Testing frequency can be increased for patients who have rapidly progressing disease or for those who are receiving medical therapy to restore bone mass. COMMENT: World Health Organization (WHO) definitions for osteoporosis and osteopenia: NORMAL BMD: T-score at -1.0 or higher, fracture risk is low OSTEOPENIA BMD: T-score between -1.0 and -2.5, fracture risk is increased. OSTEOPOROSIS BMD: T-score at -2.5 or lower, fracture risk is high. National Osteoporosis Foundation recommends: 1. Obtain adequate dietary calcium (at least 1200 mg per day) and vitamin D (400-800 international units per day). 2. Participate, as appropriate, in regular weightbearing and muscle-strengthening exercise. 3. Avoid tobacco use and reduce alcohol and caffeine intake. 4. For more detailed information see the website at www.NOF.org.
== END 2018-06-09 15:04 | disposition home or self-care (01) ==
LOC: DI 15:03
PROVIDERS: ATTEND Internal Medicine
DX: M85.89 Other specified disorders of bone density and structure, multiple sites (principal); Z78.0 Asymptomatic menopausal state
CPT/HCPCS: 77080; 77081

== ENCOUNTER 2018-08-03 08:00 | Outpatient (CLI) | payer MEDICARE, OTHER ==
[2018-08-03 13:04] LABS: BASOPHILS % (AUTO) 0.8 %; EOSINOPHILS # (AUTO) 0.2 10^3/uL (0.0-0.7); EOSINOPHILS % (AUTO) 4.8 %; HGB - HEMOGLOBIN 12.4 g/dL (12.0-16.0); LYMPHOCYTES % (AUTO) 27.3 %; MEAN CORPUSCULAR HGB CONC 33.1 g/dL (32.0-36.0); MEAN CORPUSCULAR VOLUME 87.6 fL (81.0-99.0); MEAN PLATELET VOLUME 8.6 fL (7.9-10.8); MONOCYTES # (AUTO) 0.5 10^3/uL (0.0-1.0); MONOCYTES % (AUTO) 12.6 %; NEUTROPHILS # (AUTO) 2.1 10^3/uL (1.5-6.6); NEUTROPHILS % (AUTO) 54.5 %; PLT - PLATELET COUNT 258 10^3/uL (130-450); RED BLOOD COUNT 4.27 10^6/uL (4.20-5.40); WHITE BLOOD COUNT 3.8 x10^3/uL (4.8-10.8)
== END 2018-08-03 23:59 | disposition home or self-care (01) ==
LOC: LAB.N 08:00
PROVIDERS: ATTEND Family Medicine
DX: M81.0 Age-related osteoporosis without current pathological fracture (principal); Z79.899 Other long term (current) drug therapy
CPT/HCPCS: 36415; 85025

== ENCOUNTER 2019-05-03 08:31 | Outpatient (CLI) | payer MEDICARE, OTHER ==
[2019-05-03 11:44] LABS: BASOPHILS % (AUTO) 0.8 %; EOSINOPHILS # (AUTO) 0.3 10^3/uL (0.0-0.7); HGB - HEMOGLOBIN 12.5 g/dL (12.0-16.0); MEAN CORPUSCULAR HEMOGLOBIN 27.7 pg (27.0-31.0); MEAN CORPUSCULAR HGB CONC 30.6 g/dL (32.0-36.0); MEAN CORPUSCULAR VOLUME 90.5 fL (81.0-99.0); MEAN PLATELET VOLUME 10.4 fL (7.9-10.8); MONOCYTES # (AUTO) 0.6 10^3/uL (0.0-1.0); MONOCYTES % (AUTO) 11.4 %; NEUTROPHILS # (AUTO) 3.2 10^3/uL (1.5-6.6); NEUTROPHILS % (AUTO) 63.6 %; PLT - PLATELET COUNT 275 10^3/uL (130-450); RED BLOOD COUNT 4.51 10^6/uL (4.20-5.40); RED CELL DISTRIBUTION WIDTH 13.3 % (12.0-15.0)
[2019-05-03 12:31] LABS: ALBUMIN 4.1 g/dL (3.2-5.5); ALBUMIN/GLOBULIN RATIO 1.3 (1.0-2.2); ALKALINE PHOSPHATASE 63 IU/L (42-121); ALT ALANINE AMINOTRANSFERASE 13 IU/L (10-60); AST ASPARTATE AMINOTRANSFERASE 17 IU/L (10-42); BILIRUBIN,TOTAL 0.5 mg/dL (0.2-1.0); BUN - BLOOD UREA NITROGEN 18 mg/dL (6-20); CALCIUM 9.3 mg/dL (8.5-10.3); CARBON DIOXIDE - CO2 27 mmol/L (21-32); CHLORIDE 107 mmol/L (101-111); CHOL/HDL RATIO 2.9 (<4.4); CHOLESTEROL 249 mg/dL; GFR - MDRD 54 (>89); GLUCOSE 88 mg/dL (70-100); HDL CHOLESTEROL 86 mg/dL; LDL CHOLESTEROL,CALCULATED 151 mg/dL; LDL/HDL RATIO 1.8 (<4.4); SODIUM 140 mmol/L (135-145); TOTAL PROTEIN 7.2 g/dL (6.7-8.2); VLDL CHOLESTEROL 12 mg/dL
== END 2019-05-03 23:59 | disposition home or self-care (01) ==
LOC: LAB.N 08:31
PROVIDERS: ATTEND Nurse Practitioner
DX: Z79.899 Other long term (current) drug therapy (principal); G60.9 Hereditary and idiopathic neuropathy, unspecified; E21.3 Hyperparathyroidism, unspecified; M81.0 Age-related osteoporosis without current pathological fracture; D70.9 Neutropenia, unspecified; G40.909 Epilepsy, unspecified, not intractable, without status epilepticus; Z85.038 Personal history of other malignant neoplasm of large intestine
CPT/HCPCS: 36415; 80053; 80061; 80175; 80184; 80185; 81599; 83721; 84443; 85025

== ENCOUNTER 2019-05-17 10:06 | Outpatient (CLI) | payer MEDICARE, OTHER ==
--- NOTE | 2019-05-25 16:21 | Mammography Report ---
Reason: ROUTINE MAMMO Procedure Date: 05/17/2019 Accession Number: [id number] / [id number] Procedure: MGN - Screening Mammo w/Kali CPT Code: Final Report FULL RESULT: EXAM: Screening Mammo w/Kali DATE: 05/17/2019 10:57 AM CLINICAL HISTORY: Screening encounter. History of benign left breast biopsy, core type in 2001. TECHNIQUE: (B) - Bilateral CC and MLO views were obtained. Left laterally exaggerated CC views obtained. COMPARISON: 04/01/2017 through 02/25/2013. PARENCHYMAL PATTERN: (D) - The breast(s) demonstrate(s) heterogeneously dense fibroglandular parenchyma. FINDINGS: There are no suspicious masses, calcifications, or areas of distortion. IMPRESSION: Negative examination. BI-RADS category 1. RECOMMENDATION: (ANNUAL) - Recommend routine annual screening mammography. BI-RADS CATEGORY: (1) - Negative. STANDARD QUALIFYING STATEMENTS: 1. This examination was not reviewed with the aid of Computer-Aided Detection (CAD). 2. A negative or benign imaging report should not preclude biopsy if clinically suspicious findings are present. 3. Dense breasts may obscure an underlying neoplasm. 4. This examination was reviewed with the aid of 3D breast imaging (tomosynthesis).
== END 2019-05-17 10:07 | disposition home or self-care (01) ==
LOC: DI.N 10:06
DX: Z12.31 Encounter for screening mammogram for malignant neoplasm of breast (principal)
CPT/HCPCS: 77063; 77067

== ENCOUNTER 2020-04-25 08:25 | Outpatient (CLI) | payer MEDICARE, OTHER ==
[2020-04-25 08:51] LABS: BASOPHILS % (AUTO) 0.7 %; EOSINOPHILS # (AUTO) 0.1 10^3/uL (0.0-0.7); EOSINOPHILS % (AUTO) 3.2 %; HGB - HEMOGLOBIN 13.2 g/dL (12.0-16.0); LYMPHOCYTES % (AUTO) 25.2 %; MEAN CORPUSCULAR HEMOGLOBIN 29.1 pg (27.0-31.0); MEAN CORPUSCULAR HGB CONC 31.8 g/dL (32.0-36.0); MEAN CORPUSCULAR VOLUME 91.6 fL (81.0-99.0); MEAN PLATELET VOLUME 9.4 fL (7.9-10.8); MONOCYTES # (AUTO) 0.4 10^3/uL (0.0-1.0); MONOCYTES % (AUTO) 10.8 %; NEUTROPHILS # (AUTO) 2.5 10^3/uL (1.5-6.6); NEUTROPHILS % (AUTO) 60.1 %; PLT - PLATELET COUNT 247 10^3/uL (130-450); RED BLOOD COUNT 4.53 10^6/uL (4.20-5.40); WHITE BLOOD COUNT 4.1 x10^3/uL (4.8-10.8)
[2020-04-25 09:51] LABS: ALBUMIN 4.3 g/dL (3.2-5.5); ALBUMIN/GLOBULIN RATIO 1.6 (1.0-2.2); ALKALINE PHOSPHATASE 69 IU/L (42-121); ALT ALANINE AMINOTRANSFERASE 15 IU/L (10-60); AST ASPARTATE AMINOTRANSFERASE 23 IU/L (10-42); BILIRUBIN,TOTAL 0.2 mg/dL (0.2-1.0); BUN - BLOOD UREA NITROGEN 16 mg/dL (6-20); CALCIUM 9.7 mg/dL (8.5-10.3); CARBON DIOXIDE - CO2 25 mmol/L (21-32); CHLORIDE 104 mmol/L (101-111); CHOL/HDL RATIO 2.9 (<4.4); CHOLESTEROL 263 mg/dL; CREATININE 0.9 mg/dL (0.4-1.0); GLUCOSE 90 mg/dL (70-100); HDL CHOLESTEROL 91 mg/dL; LDL CHOLESTEROL,CALCULATED 161 mg/dL; LDL/HDL RATIO 1.8 (<4.4); VLDL CHOLESTEROL 11 mg/dL
[2020-04-25 10:07] LABS: PHENYTOIN (DILANTIN) < 2.5 ug/mL
== END 2020-04-25 08:26 | disposition home or self-care (01) ==
LOC: LAB 08:25
PROVIDERS: ATTEND Nurse Practitioner
DX: G60.9 Hereditary and idiopathic neuropathy, unspecified (principal); E21.3 Hyperparathyroidism, unspecified; M81.0 Age-related osteoporosis without current pathological fracture; D70.9 Neutropenia, unspecified; G40.909 Epilepsy, unspecified, not intractable, without status epilepticus; Z85.038 Personal history of other malignant neoplasm of large intestine; Z79.899 Other long term (current) drug therapy
CPT/HCPCS: 36415; 80053; 80061; 80184; 80185; 81599; 83721; 84443; 85025

== ENCOUNTER 2020-05-30 12:23 | Outpatient (CLI) | payer MEDICARE, OTHER ==
--- NOTE | 2020-05-30 17:38 | DEXA Report ---
PROCEDURE: Dexa Spine and/or Hip INDICATIONS: POSTMENOPAUSAL/HYPERPARATHYROIDISM TECHNIQUE: Dual energy x-ray absorptiometry (DXA) was performed on a [employer] System. Regions measur ed are the AP Spine, femoral neck, and if needed forearm. COMPARISON: 06/09/2018 FINDINGS: Lumbar Spine: Bone Mineral Density 0.970 g/cm/cm,T score -1.9, osteopenia Left Femoral Neck: Bone Mineral Density 0.817 g/cm/cm, T score -1.5, osteopenia Left forearm: Bone Mineral Density 0.404 g/cm/cm, T score -4.0, osteoporosis (T score greater or equal to -1.0: NORMAL) (T score from -1.1 to -2.4: OSTEOPENIA) (T score less than or equal to -2.5 to: OSTEOPOROSIS) Impression: OSTEOPOROSIS. Patient is at high risk for fracture Patients with diagnosis of osteoporosis or osteopenia should have regular bone mineral density assess ment. For those eligible for Medicare, routine testing is allowed once every 2 years. Testing frequ ency can be increased for patients who have rapidly progressing disease or for those who are receivin g medical therapy to restore bone mass. Reviewed by: Teodoro Kaiser MD on 05/30/2020 5:37 PM PST Approved by: Teodoro Kaiser MD on 05/30/2020 5:37 PM PST Station ID: [id number]
== END 2020-05-30 12:24 | disposition home or self-care (01) ==
LOC: DI 12:23
PROVIDERS: ATTEND Nurse Practitioner
DX: M81.0 Age-related osteoporosis without current pathological fracture (principal); Z78.0 Asymptomatic menopausal state

== ENCOUNTER 2020-05-30 12:23 | Outpatient (CLI) | payer MEDICARE, OTHER ==
--- NOTE | 2020-05-31 12:54 | Mammography Report ---
BILATERAL DIGITAL SCREENING MAMMOGRAM 3D/2D: 05/30/2020 CLINICAL: Routine screening. Comparison is made to exams dated: 04/01/2017 mammogram, 05/17/2019 mammogram, and 03/27/2015 mammogram - [facility]. The tissue of both breasts is heterogeneously dense. This may lower t he sensitivity of mammography. No significant masses, calcifications, or other findings are seen in either breast. There has been no significant interval change. IMPRESSION: NEGATIVE There is no mammographic evidence of malignancy. A 1 year screening mammogram is recommended. This exam was interpreted at Station ID: [id number]. NOTE: For mammograms, a report in lay terms will be sent to the patient. Approximately 15% of breast malignancies will not be visualized mammographically. In the management of a palpable breast mass, a negative mammogram must not discourage biopsy of a clinically suspicious lesion. Electronically Signed By: Matt Lee M.D. [email or web address]:05/30/2020 13:11:22 ACR BI-RADS Category 1: Negative 3341F PARENCHYMAL PATTERN: (D) - The breast(s) demonstrate(s) heterogeneously dense fibroglandular tyrese juarez. BI-RADS CATEGORY: (1) - 1 RECOMMENDATION: (ANNUAL) - Recommend routine annual screening mammography. [id number] 1 year screening LATERALITY: (B)
== END 2020-05-30 12:24 | disposition home or self-care (01) ==
LOC: DI 12:23
PROVIDERS: ATTEND Nurse Practitioner
DX: Z12.31 Encounter for screening mammogram for malignant neoplasm of breast (principal)

== ENCOUNTER 2020-06-22 11:24 | Day surgery (SDC) | payer MEDICARE, OTHER ==
--- NOTE | 2020-06-22 12:28 | ANESTHESIA ---
Pre-Anesthesia VS, & Labs Height: 5 ft 6.5 in - NPO >8 hours - Is Patient ?: No <Rossy Moya - Last Filed: 06/22/20 12:26> - Diagnosis history of colon cancer (Rossy Moya) - Procedure colonoscopy (Rossy Moya) Vital Signs: Temp Pulse Resp BP Pulse Ox 36.2 C L 78 16 130/49 L 98 06/22/20 11:50 06/22/20 11:50 06/22/20 11:50 06/22/20 11:50 06/22/20 11:50 Home Medications and Allergies <Rossy Moya - Last Filed: 06/22/20 12:26> <Candelaria Murry - Last Filed: 06/22/20 12:53> Calcium Cit/Mgox/Vit D3/B6/Min [Calcium Citrate Plus Tablet] 500 each PO BID 05/04/13 Docusate Sodium 250 mg PO DAILY 05/04/13 PHENobarbitaL [Phenobarb] 30 mg PO DAILY 05/04/13 Lamotrigine [Lamotrigine ER] 300 mg PO QPM 06/16/14 Cholecalciferol (Vitamin D3) [Vitamin D3] 2,000 mg PO QDLUNCH 08/01/17 PHENobarbitaL [Phenobarbital] 60 mg PO QPM 08/01/17 Vitamin D3/Folic Acid [Cifrazol 3,775 Unit-1 mg Cap] 1,000 mg PO BID 08/01/17 lamoTRIgine [Lamictal] 150 mg PO DAILY 08/01/17 lamoTRIgine [Lamictal] 150 mg PO QDLUNCH 08/01/17 Allergies/Adverse Reactions: Allergies Allergy/AdvReac Type Severity Reaction Status Date / Time No Known Drug Allergies Allergy Verified 01/17/18 04:27 Anes History & Medical History - Medical History Cardiovascular: reports: None Pulmonary: reports: None Gastrointestinal: reports: Other Urinary: reports: None Neuro: reports: Seizure disorder Musculoskeletal: reports: Osteoporosis Endocrine/Autoimmune: reports: None Skin: reports: None Smoking Status: Never smoker - Surgical History General: reports: Colonoscopy, Other Eyes Ears Nose Throat (EENT): reports: Other Gynecologic: reports: Hysterectomy, Other <Rossy Moya - Last Filed: 06/22/20 12:26> Exam General: Alert <Rossy Moya E - Last Filed: 06/22/20 12:26> Dental: Partials Upper Mouth Openin Fingerbreadth Neck Mobility: Normal Mallampati classification: II Thyromental Distance: 4-6 cm <Candelaria Murry M - Last Filed: 06/22/20 12:53> Plan Anesthesia Type: MAC Consent for Procedure(s) Verified and Reviewed: Yes Code Status: Attempt Resuscitation ASA classification: 2-Mild systemic disease Is this case an emergency?: No <Rossy Moya E - Last Filed: 06/22/20 12:26> Anesthesia Type: Total IV <Candelaria Murry M - Last Filed: 06/22/20 12:53>
[2020-06-22] MEDS ORDERED: LIDOCAINE-MPF 2% 5 ML VIAL ONE (13:08)
[2020-06-22] MEDS ORDERED: PROPOFOL 200 MG/20 ML VIAL IVP ONE ×2 (13:08)
[2020-06-22] MEDS ORDERED: LACTATED RINGERS 1,000 ML IV ONE (13:34)
[2020-06-22 14:06] VITALS: BP 141/71
--- NOTE | 2020-06-22 18:26 | ANESTHESIA POST OP EVALUATION ---
Anesthesia Post Eval - Post Anesthesia Eval Vitals: Last Vital Signs Temp 36.9 C 06/22/20 13:39 Pulse 75 06/22/20 14:06 Resp 16 06/22/20 14:06 BP 141/71 H 06/22/20 14:06 Pulse Ox 97 06/22/20 14:06 CV Function Including HR & BP: positive: Stable Pain Control: positive: Satisfactory Nausea & Vomiting: positive: Negative Mental Status: positive: Baseline Respiratory Status: Airway Patent Hydration Status: Satisfactory Anesthesia Complications: positive: None
== END 2020-06-22 11:25 | disposition home or self-care (01) ==
LOC: SDS 11:24
PROVIDERS: ATTEND Surgery
PROC: 0DBK8ZZ Excision of Ascending Colon, Via Natural or Artificial Opening Endoscopic (ICD-10-PCS; principal; 2020-06-22 12:30)
DX: Z12.11 Encounter for screening for malignant neoplasm of colon (principal); D12.2 Benign neoplasm of ascending colon; G40.909 Epilepsy, unspecified, not intractable, without status epilepticus; Z85.038 Personal history of other malignant neoplasm of large intestine; Z90.49 Acquired absence of other specified parts of digestive tract; K64.8 Other hemorrhoids; Z98.0 Intestinal bypass and anastomosis status
CPT/HCPCS: 45380; J7120

== ENCOUNTER 2020-11-27 08:06 | Outpatient (CLI) | payer MEDICARE, OTHER | END 2020-11-27 08:07 | disposition EMS.NT | LOC: EMS 08:06 | DX: S99.922A Unspecified injury of left foot, initial encounter (principal); W19.XXXA Unspecified fall, initial encounter ==

== ENCOUNTER 2020-11-27 08:53 | Emergency (ER) | payer MEDICARE, OTHER ==
--- NOTE | 2020-11-27 09:50 | XRAY Report ---
PROCEDURE: Ankle 3 View LT INDICATIONS: injury TECHNIQUE: 3 views of the ankle were acquired. COMPARISON: 04/08/2017, and 12/03/2014. Correlation is made with the accompanying foot plain films, 11/27/2020. FINDINGS: Bones: No fractures or dislocations. Ankle mortise is normally aligned. No suspicious bony lesions . Age-appropriate osteopenia can be seen. The talar dome demonstrates an unremarkable appearance. An accessory ossicle is seen, an os trigonum. Soft tissues: No tibiotalar joint effusion. Achilles tendon appears normal. IMPRESSION: No acute plain film abnormality is seen. Osteopenia and degenerative changes are seen. Reviewed by: Arnulfo Wheat MD on 11/27/2020 8:48 AM LITZY Approved by: Arnulfo Wheat MD on 11/27/2020 8:48 AM LITZY Station ID: [id number]
--- NOTE | 2020-11-27 09:52 | XRAY Report ---
PROCEDURE: Foot 3 View LT INDICATIONS: injury TECHNIQUE: 3 views of the foot were acquired. COMPARISON: 12/03/2014. Correlation is also made with the accompanying ankle plain films, 11/27/2020. FINDINGS: Bones: No acute fractures or dislocations. Focal irregularity seen involving the base of the fifth m etatarsal, which is attributed to a remote fracture. No suspicious bony lesions. Age-appropriate os teopenia can be seen. Degenerative changes are seen, which are worst along the Lisfranc joint. Soft tissues: No tibiotalar joint effusion. Achilles tendon appears normal. IMPRESSION: There is a remote appearing fracture seen involving the base of the fifth metatarsal. However, please correlate with focal tenderness. If it would be helpful for clinical management decision making, please consider a dedicated foot CT f or further evaluation. Reviewed by: Arnulfo Wheat MD on 11/27/2020 8:51 AM [facility] Approved by: Arnulfo Wheat MD on 11/27/2020 8:51 AM [facility] Station ID: [id number]
--- NOTE | 2020-11-27 12:11 | ED Physician Documentation ---
PD HPI LOWER EXT INJURY - Stated complaint Stated Complaint: L TOE PX - Chief complaint Chief Complaint: Trauma Ext - History obtained from History obtained from: Patient - History of Present Illness PD HPI LOW EXT INJURY LOCATION: Left, Ankle, Foot Type of injury: Fall, Twist Where injury occurred: Home Timing - onset: How many days ago (3) Timing - duration: Days (3) Pain level max: 4 Pain level now: 3 Improved by: Rest Worsened by: Moving, Palpating Associated symptoms: No: Weakness, Numbness, Tingling, Swelling, Discolored Contributing factors: No: Anticoagulated - Additional information Additional information: Patient normally wears B ankle/foot braces. states rolled her L ankle and foot 3 days ago at home. started having pain yesterday. 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, Other HEENT: Other - Present Medications Home Medications: Ambulatory Orders Medication Instructions Recorded Confirmed Calcium Cit/Mgox/Vit D3/B6/Min 500 each PO BID 05/04/13 11/27/20 [Calcium Citrate Plus Tablet] PHENobarbitaL [Phenobarb] 30 mg PO DAILY 05/04/13 11/27/20 Lamotrigine [Lamotrigine ER] 300 mg PO QPM 06/16/14 11/27/20 PHENobarbitaL [Phenobarbital] 60 mg PO QPM 08/01/17 11/27/20 Vitamin D3/Folic Acid [Cifrazol 1,000 mg PO BID 08/01/17 11/27/20 3,775 Unit-1 mg Cap] lamoTRIgine [Lamictal] 150 mg PO DAILY 08/01/17 11/27/20 lamoTRIgine [Lamictal] 150 mg PO QDLUNCH 08/01/17 11/27/20 Docusate Sodium 100 mg PO DAILY PRN 11/27/20 11/27/20 - Allergies Allergies/Adverse Reactions: Allergies Allergy/AdvReac Type Severity Reaction Status Date / Time No Known Drug Allergies Allergy Verified 11/27/20 09:14 - Social History Does the pt smoke?: No Smoking Status: Never smoker Does the pt drink ETOH?: No Does the pt have substance abuse?: No - Immunizations Immunizations are current?: Yes - POLST Patient has POLST: No PD ED PE NORMAL - Vitals Vital signs reviewed: Yes - General General: Alert and oriented X 3, No acute distress - Derm Derm: Warm and dry - Extremities Extremities: Other (L foot/ankle - mild diffuse TTP over the foot and ankle. no swelling. no deformity. diminished sensation throughout. no tenderness over the base of 5 MT. mild tenderness on medial arch.) - Neuro Neuro: Alert and oriented X 3 - Psych Psych: Normal mood, Normal affect Results - Vitals Vitals: Vital Signs - 24 hr 11/27/20 09:14 Temperature 36.2 C L Heart Rate 85 Respiratory 18 Rate Blood Pressure 131/68 H O2 Saturation 97 Oxygen O2 Source Room air - Rads (name of study) L foot xray Radiology: Final report received, EMP read contemporaneously, See rad report L ankle xray Radiology: Final report received, EMP read contemporaneously, See rad report PD MEDICAL DECISION MAKING - ED course Complexity details: reviewed results, considered differential, d/w patient ED course: No acute abnormality of the left foot or ankle on x-ray. No tenderness at the base of the fifth metatarsal. She has an ankle and foot brace already that she wears. We will continue in this. She has a walker at home as well. Declines anything for pain. Patient counseled regarding signs and symptoms for which I believe and urgent re-evaluation would be necessary. Patient with good understanding of and agreement to plan and is comfortable going home at this time This document was made in part using voice recognition software. While efforts are made to proofread this document, sound alike and grammatical errors may occur. Departure - Departure Disposition: 01 Home, Self Care Clinical Impression: Sprain of left foot Qualifiers: Encounter type: initial encounter Qualified Code(s): S93.602A - Unspecified sprain of left foot, initial encounter Condition: Good Instructions: ED Sprain Foot Follow-Up: Davi Bullock MD [Primary Care Provider] - Within 1 week Comments: Your xrays do not show any acute abnormalities today. You may bear weight as tolerated. Follow up with your doctor for further care.
[2020-11-27 12:37] VITALS: BP 146/67
== END 2020-11-27 12:39 | disposition home or self-care (01) ==
LOC: ED 08:53
DX: S93.602A Unspecified sprain of left foot, initial encounter (principal); W01.0XXA Fall on same level from slipping, tripping and stumbling without subsequent striking against object, initial encounter; Y92.003 Bedroom of unspecified non-institutional (private) residence as the place of occurrence of the external cause
CPT/HCPCS: 99282; 99283

== ENCOUNTER 2021-05-04 09:22 | Outpatient (CLI) | payer MEDICARE, OTHER ==
[2021-05-04 14:39] LABS: BASOPHILS % (AUTO) 0.4 %; EOSINOPHILS # (AUTO) 0.2 10^3/uL (0.0-0.7); EOSINOPHILS % (AUTO) 3.1 %; HCT - HEMATOCRIT 41.9 % (37.0-47.0); HGB - HEMOGLOBIN 13.1 g/dL (12.0-16.0); LYMPHOCYTES # (AUTO) 1.2 10^3/uL (1.5-3.5); LYMPHOCYTES % (AUTO) 22.7 %; MEAN CORPUSCULAR HEMOGLOBIN 28.5 pg (27.0-31.0); MEAN CORPUSCULAR HGB CONC 31.3 g/dL (32.0-36.0); MEAN CORPUSCULAR VOLUME 91.1 fL (81.0-99.0); MEAN PLATELET VOLUME 10.2 fL (7.9-10.8); MONOCYTES # (AUTO) 0.7 10^3/uL (0.0-1.0); MONOCYTES % (AUTO) 13.1 %; NEUTROPHILS # (AUTO) 3.1 10^3/uL (1.5-6.6); NEUTROPHILS % (AUTO) 60.5 %; PLT - PLATELET COUNT 269 10^3/uL (130-450); RED CELL DISTRIBUTION WIDTH 13.2 % (12.0-15.0); WHITE BLOOD COUNT 5.1 x10^3/uL (4.8-10.8)
[2021-05-04 15:00] LABS: THYROID STIMULATING HORMONE 1.68 uIU/mL (0.34-5.60)
[2021-05-04 15:08] LABS: ALBUMIN 4.3 g/dL (3.2-5.5); ALBUMIN/GLOBULIN RATIO 1.3 (1.0-2.2); ALKALINE PHOSPHATASE 62 IU/L (42-121); ALT ALANINE AMINOTRANSFERASE 16 IU/L (10-60); AST ASPARTATE AMINOTRANSFERASE 21 IU/L (10-42); BILIRUBIN,TOTAL 0.5 mg/dL (0.2-1.0); BUN - BLOOD UREA NITROGEN 20 mg/dL (6-20); CALCIUM 9.2 mg/dL (8.5-10.3); CARBON DIOXIDE - CO2 27 mmol/L (21-32); CHLORIDE 102 mmol/L (101-111); CHOL/HDL RATIO 2.9 (<4.4); CHOLESTEROL 268 mg/dL; GFR - MDRD 54 (>89); GLUCOSE 97 mg/dL (70-100); HDL CHOLESTEROL 91 mg/dL; LDL CHOLESTEROL,CALCULATED 164 mg/dL; LDL/HDL RATIO 1.8 (<4.4); POTASSIUM 3.8 mmol/L (3.5-5.0); SODIUM 140 mmol/L (135-145); TOTAL PROTEIN 7.5 g/dL (6.7-8.2); TRIGLYCERIDES 64 mg/dL; VLDL CHOLESTEROL 13 mg/dL
== END 2021-05-04 09:23 | disposition home or self-care (01) ==
LOC: LAB.N 09:22
PROVIDERS: ATTEND Family Medicine
DX: G62.9 Polyneuropathy, unspecified (principal); D70.9 Neutropenia, unspecified; G40.909 Epilepsy, unspecified, not intractable, without status epilepticus
CPT/HCPCS: 36415; 80053; 80061; 83721; 84443; 85025

== ENCOUNTER 2021-06-12 15:03 | Outpatient (CLI) | payer MEDICARE, OTHER ==
--- NOTE | 2021-06-12 17:32 | XRAY Report ---
PROCEDURE: Knee 4 View LT INDICATIONS: SPRAIN OF MEDIAL COLLATERAL LIGAMENT OF L KNEE TECHNIQUE: 4 views of the left knee were acquired. COMPARISON: None. FINDINGS: Bones: No acute fractures or dislocations. No suspicious bony lesions. Soft tissues: Moderate joint effusion. No suspicious soft tissue calcifications. IMPRESSION: No acute osseous abnormality. Moderate joint effusion. If there is clinical concern or p ersistent symptoms, additional imaging such as repeat radiographs or advanced imaging (e.g. CT, MRI) may be helpful for further evaluation. Reviewed by: Matt Lee MD on 06/12/2021 4:31 PM [facility] Approved by: Matt Lee MD on 06/12/2021 4:31 PM [facility] Station ID: [id number]
== END 2021-06-12 15:04 | disposition home or self-care (01) ==
LOC: LAB.N 15:03 → DI.N 15:04
PROVIDERS: ATTEND Nurse Practitioner
DX: S83.412A Sprain of medial collateral ligament of left knee, initial encounter (principal)

== ENCOUNTER 2021-07-06 06:00 | Outpatient (CLI) | payer MEDICARE, OTHER ==
--- NOTE | 2021-07-06 12:48 | XRAY Report ---
PROCEDURE: Knee 1 View BILAT INDICATIONS: LEFT KNEE PAIN TECHNIQUE: AP view of both knees. COMPARISON: June 12, 2021. FINDINGS: BONES/JOINT: No acute, displaced fracture or dislocation. The joint spaces are maintained. SOFT TISSUES: No significant abnormality. IMPRESSION: 1.No significant abnormality. Reviewed by: Thierno Millard MD on 07/06/2021 12:47 PM PDT Approved by: Thierno Millard MD on 07/06/2021 12:47 PM PDT Station ID: [id number]
== END 2021-07-06 23:59 | disposition home or self-care (01) ==
LOC: DI.WOS 06:00
PROVIDERS: ATTEND Physician Assistant
DX: S83.92XA Sprain of unspecified site of left knee, initial encounter (principal)

== ENCOUNTER 2021-09-11 08:23 | Outpatient (CLI) | payer MEDICARE, OTHER ==
[2021-09-11 11:47] LABS: BASOPHILS # (AUTO) 0.1 10^3/uL (0.0-0.1); EOSINOPHILS # (AUTO) 0.2 10^3/uL (0.0-0.7); EOSINOPHILS % (AUTO) 3.5 %; HCT - HEMATOCRIT 40.2 % (37.0-47.0); HGB - HEMOGLOBIN 12.4 g/dL (12.0-16.0); LYMPHOCYTES # (AUTO) 1.1 10^3/uL (1.5-3.5); LYMPHOCYTES % (AUTO) 21.9 %; MEAN CORPUSCULAR HEMOGLOBIN 28.3 pg (27.0-31.0); MEAN CORPUSCULAR HGB CONC 30.8 g/dL (32.0-36.0); MEAN CORPUSCULAR VOLUME 91.8 fL (81.0-99.0); MEAN PLATELET VOLUME 10.3 fL (7.9-10.8); MONOCYTES # (AUTO) 0.7 10^3/uL (0.0-1.0); MONOCYTES % (AUTO) 13.1 %; NEUTROPHILS # (AUTO) 3.1 10^3/uL (1.5-6.6); NEUTROPHILS % (AUTO) 60.3 %; PLT - PLATELET COUNT 273 10^3/uL (130-450); RED BLOOD COUNT 4.38 10^6/uL (4.20-5.40); RED CELL DISTRIBUTION WIDTH 13.9 % (12.0-15.0); WHITE BLOOD COUNT 5.2 x10^3/uL (4.8-10.8)
[2021-09-11 12:31] LABS: ALBUMIN/GLOBULIN RATIO 1.3 (1.0-2.2); BILIRUBIN,TOTAL 0.3 mg/dL (0.2-1.0); CALCIUM 9.6 mg/dL (8.5-10.3); CREATININE 0.9 mg/dL (0.4-1.0); TOTAL PROTEIN 7.1 g/dL (6.7-8.2)
[2021-09-11 12:44] LABS: THYROID STIMULATING HORMONE 1.81 uIU/mL (0.34-5.60)
[2021-09-11 12:46] LABS: FREE T3 3.64 pg/mL (2.5-3.9)
[2021-09-11 12:47] LABS: FREE T4 (FREE THYROXINE) 0.87 ng/dL (0.58-1.64)
== END 2021-09-11 08:24 | disposition home or self-care (01) ==
LOC: LAB.N 08:23
PROVIDERS: ATTEND Family Medicine
DX: M62.81 Muscle weakness (generalized) (principal)
CPT/HCPCS: 36415; 80053; 84439; 84443; 84481; 85025

== ENCOUNTER 2021-10-17 09:44 | Outpatient (CLI) | payer MEDICARE, OTHER ==
--- NOTE | 2021-10-17 13:06 | DEXA Report ---
PROCEDURE: Dexa Spine and/or Hip INDICATIONS: OSTEOPOROSIS TECHNIQUE: Dual energy x-ray absorptiometry (DXA) was performed on a [employer]. Regions measur ed are the AP Spine, femoral neck, and if needed forearm. COMPARISON: 05/30/2020 and 06/09/2018. FINDINGS: Lumbar Spine: Bone Mineral Density 0.945 g/cm/cm,T score -2.0, osteopenia Left Hip: Bone Mineral Density 0.824 g/cm/cm,T score -1.5, osteopenia Left Femoral Neck: Bone Mineral Density 0.712 g/cm/cm, T score -2.3, osteopenia Left forearm: Left forearm was used for measurement secondary to history of hyperparathyroidism. Bone Mineral Density 0.647 g/cm/cm, T score -2.6, osteoporosis. Of note, bone mineral density of the forearm has increased approximately 6.8% since the prior study. (T score greater or equal to -1.0: NORMAL) (T score from -1.1 to -2.4: OSTEOPENIA) (T score less than or equal to -2.5 to: OSTEOPOROSIS) Impression: Mild osteoporosis. Patient is at high risk for fracture. Patients with diagnosis of osteoporosis or osteopenia should have regular bone mineral density assess ment. For those eligible for Medicare, routine testing is allowed once every 2 years. Testing frequ ency can be increased for patients who have rapidly progressing disease or for those who are receivin g medical therapy to restore bone mass. Reviewed by: Teodoro Kaiser MD on 10/17/2021 1:05 PM PDT Approved by: Teodoro Kaiser MD on 10/17/2021 1:05 PM PDT Station ID: [id number]
== END 2021-10-17 09:45 | disposition home or self-care (01) ==
LOC: DI 09:44
PROVIDERS: ATTEND Family Medicine
DX: M81.0 Age-related osteoporosis without current pathological fracture (principal); M85.89 Other specified disorders of bone density and structure, multiple sites; Z86.39 Personal history of other endocrine, nutritional and metabolic disease

== ENCOUNTER 2023-02-20 10:04 | Outpatient (CLI) | payer MEDICARE, OTHER ==
--- NOTE | 2023-02-20 11:28 | XRAY Report ---
PROCEDURE: Knee 3 View RT INDICATIONS: RIGHT KNEE JOINT PAIN TECHNIQUE: 3 views of the knee(s) were acquired. COMPARISON: None. FINDINGS: Bones: No fractures or dislocations. No suspicious bony lesions. Soft tissues: Small suprapatellar knee joint effusion. Mild degenerative changes of the lateral join t space. No suspicious soft tissue calcifications or masses. IMPRESSION: 1. Degenerative changes with mild lateral joint space narrowing. 2. Small suprapatellar joint effusion suggests possible internal derangement. 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 Reviewed by: Byron Polo on 02/20/2023 10:27 AM [facility] Approved by: Byron Polo on 02/20/2023 10:27 AM [facility] Station ID: [id number]
== END 2023-02-20 10:05 | disposition home or self-care (01) ==
LOC: DI 10:04
PROVIDERS: ATTEND Nurse Practitioner Family
DX: M17.11 Unilateral primary osteoarthritis, right knee (principal); M25.461 Effusion, right knee

== ENCOUNTER 2023-03-13 09:22 | Outpatient (CLI) | payer MEDICARE, OTHER ==
--- NOTE | 2023-03-13 16:38 | MRI Report ---
PROCEDURE: KNEE WO - RT INDICATIONS: RIGHT KNEE JOINT EFFUSION, RT KNEE PAIN TECHNIQUE: Noncontrast sagittal PD fast spin echo and T2 fast spin echo with fat saturation, sagittal 3-D gradie nt sequence with fat saturation; coronal T1 spin echo and PD fast spin echo with fat saturation, and axial PD fast spin echo with fat saturation through the knee. COMPARISON: Right knee radiograph dated 02/20/2023. FINDINGS: Image quality: Excellent. Menisci: The medial meniscus is intact. Subtle signal abnormality involving anterior horn of lateral meniscus is seen extending to inferior articulating surface concerning for subtle lateral meniscal te ar. There is low to moderate grade partial-thickness tear involving posterior lateral meniscal root l igament. Cruciate ligaments: The anterior ligament is thickened. The posterior cruciate ligament is intact. Medial structures: The medial collateral ligament appears thickened with surrounding soft tissue irene ma near its femoral insertion. Visualized portions of the pes anserinus tendons appear normal. No ab normal bursal fluid. Lateral structures: The lateral collateral ligament, long and short heads of the biceps femoris tend on appear thickened. The popliteus tendon is thickened with intrasubstance T2 hyperintense signal ext ending to musculotendinous junction. The arcuate and fabellofibular ligaments appear intact, around t he lateral inferior geniculate artery. Distal iliotibial band is mildly thickened. Anterior structures: Distal quadriceps tendinosis at its superior patella insertion is seen. The morejon lla tendon is intact. Patellar alignment is normal. No femoral trochlear dysplasia or ventral trochl ear prominence. No edema in the infrapatellar fat pad. Bones and cartilage: No bone marrow contusions or fractures. 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 Joint space: There is moderate to large knee joint fluid. There is a tiny Villela's cyst. Normal appe aring synovial plicae are incidentally noted. IMPRESSION: 1. Suggestion of subtle oblique tear involving anterior horn of lateral meniscus extending to inferio r articulating surface. Low to moderate grade partial-thickness tear involving posterior lateral meni scal root ligament. The medial meniscus is intact. 2. Degenerative changes in anterior cruciate ligament. No ACL rupture. The PCL is intact. 3. Low-grade proximal MCL sprain. 4. Low to moderate grade LCL sprain/partial thickness tear. Tendinosis and low-grade partial-thicknes s tear involving distal biceps femoris tendon. Tendinosis and low-grade intrasubstance partial thickn ess tear involving popliteus tendon extending to musculotendinous junction. Moderately thickened ilio tibial band with underlying soft tissue edema suggests clinical correlation for possible iliotibial b and syndrome. 5. Mild to moderate tricompartmental osteoarthritis and chondromalacia most notably involving lateral femoral tibial compartment. No fracture or dislocation. Moderate to large joint effusion, no gross l oose bodies. 6. Distal quadriceps tendinosis. Reviewed by: Rock Dong MD on 03/13/2023 4:37 PM PST Approved by: Rock Dong MD on 03/13/2023 4:37 PM PST Station ID: [id number]
== END 2023-03-13 09:23 | disposition home or self-care (01) ==
LOC: DI 09:22
PROVIDERS: ATTEND Nurse Practitioner Family
DX: S83.281A Other tear of lateral meniscus, current injury, right knee, initial encounter (principal); S83.411A Sprain of medial collateral ligament of right knee, initial encounter; M17.11 Unilateral primary osteoarthritis, right knee; S83.421A Sprain of lateral collateral ligament of right knee, initial encounter; M67.863 Other specified disorders of tendon, right knee; M94.261 Chondromalacia, right knee; M25.461 Effusion, right knee

== ENCOUNTER 2023-04-29 13:45 | Outpatient (CLI) | payer MEDICARE, OTHER ==
[2023-04-29 17:31] LABS: BASOPHILS # (AUTO) 0.1 10^3/uL (0.0-0.1); BASOPHILS % (AUTO) 0.9 %; EOSINOPHILS # (AUTO) 0.1 10^3/uL (0.0-0.7); EOSINOPHILS % (AUTO) 2.4 %; HCT - HEMATOCRIT 43.6 % (37.0-47.0); HGB - HEMOGLOBIN 13.5 g/dL (12.0-16.0); LYMPHOCYTES # (AUTO) 1.1 10^3/uL (1.5-3.5); LYMPHOCYTES % (AUTO) 20.2 %; MEAN CORPUSCULAR VOLUME 90.5 fL (81.0-99.0); MEAN PLATELET VOLUME 10.5 fL (7.9-10.8); MONOCYTES # (AUTO) 0.6 10^3/uL (0.0-1.0); MONOCYTES % (AUTO) 11.7 %; NEUTROPHILS # (AUTO) 3.5 10^3/uL (1.5-6.6); NEUTROPHILS % (AUTO) 64.4 %; PLT - PLATELET COUNT 283 10^3/uL (130-450); RED BLOOD COUNT 4.82 10^6/uL (4.20-5.40); RED CELL DISTRIBUTION WIDTH 13.2 % (12.0-15.0); WHITE BLOOD COUNT 5.5 x10^3/uL (4.8-10.8)
[2023-04-29 17:45] LABS: ALBUMIN 4.3 g/dL (3.2-5.5); ALBUMIN/GLOBULIN RATIO 1.5 (1.0-2.2); BILIRUBIN,TOTAL 0.3 mg/dL (0.2-1.0); CALCIUM 9.9 mg/dL (8.5-10.3); CREATININE 0.9 mg/dL (0.6-1.3); TOTAL PROTEIN 7.2 g/dL (6.4-8.9)
== END 2023-04-29 14:00 | disposition home or self-care (01) ==
LOC: LAB.N 13:45
PROVIDERS: ATTEND Nurse Practitioner
DX: R10.9 Unspecified abdominal pain (principal)
CPT/HCPCS: 36415; 80053; 82150; 83690; 85025

== ENCOUNTER 2023-05-05 14:37 | Outpatient (CLI) | payer MEDICARE, OTHER ==
[2023-05-05] MEDS ORDERED: DIATRIZOATE MEGLU/DIATRIZO SOD 30 ML BOTTLE PO ONE (14:49)
[2023-05-05] MEDS ORDERED: iohexoL-300 100 ML VIAL ONE (14:49)
[2023-05-05] MEDS: DIATRIZOATE MEGLU/DIATRIZO SOD 30 ML BOTTLE PO ONE (16:17)
[2023-05-05] MEDS: iohexoL-300 100 ML VIAL IVP ONE (16:18)
--- NOTE | 2023-05-05 20:52 | CT Report ---
PROCEDURE: Abdomen/Pelvis W INDICATIONS: ABD PAIN CONTRAST: Omni 300 100ml TECHNIQUE: After the administration of intravenous contrast, a CT scan of the abdomen and pelvis was performed. Images were recorded and evaluated at appropriate window settings. Reformats: coronal and sagittal. F or radiation dose reduction, the following was used: automated exposure control, adjustment of mA and /or kV according to patient size. COMPARISON: CT abdomen pelvis 01/17/2018. FINDINGS: Image quality: Diagnostic. Lower chest: No pleural effusion. Small hiatal hernia. Asymmetric elevation of the left hemidiaphragm . Left basilar atelectasis. Liver: No solid mass. Multiple benign cysts. Gallbladder and biliary tree: Prominent size. No calcified gallstones. No biliary ductal dilatation. Spleen: No splenomegaly. Small splenule. Pancreas: No pancreatic ductal dilation. Adrenals: No adrenal nodule. Kidneys and ureters: No hydronephrosis. No renal cystic lesion which requires follow up. No solid mas s. Stomach, bowel and peritoneum: Patulous sigmoid colon in the left lower quadrant, unchanged. A surgic al anastomosis is present. The appendix is normal. No small bowel obstruction. Stomach is within norm al limits. Lymph nodes: No central or retroperitoneal adenopathy. Vessels: No infrarenal aortic aneurysm. Circumferential calcified atherosclerotic plaque. PELVIS Reproductive organs: Uterus is absent. Bladder: No stone. Pelvic lymph nodes: No pelvic adenopathy by size criteria. Bones: No aggressive osseous abnormality. Subtle areas of lucency in the vertebral spine are unchange d. Other: No significant ventral or inguinal hernia. Small skin lesions on the abdominal wall. IMPRESSION: No acute abnormality identified. No free fluid. Reviewed by: Milo Gunter MD on 05/05/2023 8:51 PM PST Approved by: Milo Gunter MD on 05/05/2023 8:51 PM PST Station ID: [id number]
== END 2023-05-05 14:38 | disposition home or self-care (01) ==
LOC: DI 14:37
PROVIDERS: ATTEND Nurse Practitioner
DX: R10.9 Unspecified abdominal pain (principal)
CPT/HCPCS: 74177; Q9963; Q9967

== ENCOUNTER 2023-07-21 14:19 | Outpatient (CLI) | payer MEDICARE, OTHER ==
--- NOTE | 2023-07-22 09:11 | Ultrasound Report ---
PROCEDURE: Duplex Ext Veins Bilateral INDICATIONS: Davi Bullock MD TECHNIQUE: Real-time imaging, as well as color and pulse Doppler interrogation, were performed of the deep veins of both legs from the inguinal ligament to the popliteal fossa. Attempted visualization of the calf veins was performed. COMPARISON: None available. FINDINGS: The deep veins are normally compressible, and free of intraluminal thrombus. Color and pu lse Doppler demonstrate normal phasic intravascular flow. There is normal augmentation response to d istal compression maneuver. IMPRESSION: No deep venous thrombosis of the visualized lower extremities. Reviewed by: Mikel Sosa MD on 07/22/2023 9:10 AM PDT Approved by: Mikel Sosa MD on 07/22/2023 9:10 AM PDT Station ID: [id number]
== END 2023-07-21 14:20 | disposition home or self-care (01) ==
LOC: DI 14:19
PROVIDERS: ATTEND Family Medicine
DX: R60.0 Localized edema (principal)
CPT/HCPCS: 93970